=== PATIENT | female | born 2000 | race Caucasian/White ===

== ENCOUNTER 2019-08-13 01:02 | Emergency (ER) | payer BC ==
[2019-08-13 01:49] LABS: ABSOLUTE LYMPHOCYTES (AUTO) 2.7 10^3/uL (0.5-4.7); ABSOLUTE MONOCYTES (AUTO) 0.8 10^3/uL (0.1-1.4); ABSOLUTE NEUT (AUTO) 5.3 10^3/uL (1.7-8.2); BASOPHILS % (AUTO) 0.5 % (0-2); EOSINOPHILS % (AUTO) 0.4 % (0-6); HEMATOCRIT 42.2 % (36.0-47.0); HEMOGLOBIN 14.6 g/dL (12.0-15.5); LYMPHOCYTES % (AUTO) 30.3 % (13-45); MEAN CORPUSCULAR HEMOGLOBIN 30.5 pg (27.0-33.4); MEAN CORPUSCULAR HGB CONC 34.5 g/dL (32.0-36.0); MEAN CORPUSCULAR VOLUME 89 fl (80-97); PLATELET COUNT 239 10^3/uL (150-450); RED BLOOD COUNT 4.77 10^6/uL (3.72-5.28); RED CELL DISTRIBUTION WIDTH 13.2 % (11.5-14.0); SEGMENTED NEUTROPHILS % (AUTO) 59.8 % (42-78); TOTAL CELLS COUNTED % (AUTO) 100 %; WHITE BLOOD COUNT 8.9 10^3/uL (4.0-10.5)
[2019-08-13 01:58] LABS: ALBUMIN 4.8 g/dL (3.5-5.0); ALCOHOL 245 mg/dL (NONE DETECTED); ALKALINE PHOSPHATASE 70 U/L (38-126); ANION GAP 17 (5-19); ASPARTATE AMINO TRANSFERASE 32 U/L (14-36); BILIRUBIN,DIRECT 0.2 mg/dL (0.0-0.4); BILIRUBIN,TOTAL 0.6 mg/dL (0.2-1.3); BLOOD UREA NITROGEN 5 mg/dL (7-20); CALCIUM 9.6 mg/dL (8.4-10.2); CARBON DIOXIDE 20 mmol/L (22-30); CHLORIDE 112 mmol/L (98-107); GLUCOSE 109 mg/dL (75-110); POTASSIUM 3.7 mmol/L (3.6-5.0); TOTAL PROTEIN 7.9 g/dL (6.3-8.2)
[2019-08-13 01:59] LABS: ACETAMINOPHEN < 10 ug/mL (10-30); SALICYLATE < 1.0 mg/dL (2.0-20.0)
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
[2019-08-13] MEDS ORDERED: NORMAL SALINE 1000 ML 1,000 ML IV ONE (02:36)
[2019-08-13] MEDS ORDERED: ONDANSETRON HCL INJ/PF 4 MG/2 ML SDV IV ONE (03:33)
--- NOTE | 2019-08-13 03:42 | RADIOLOGY REPORT (SQ) ---
EXAM DESCRIPTION: CT HEAD WITHOUT IV CONTRAST COMPLETED DATE/TME: 08/13/2019 01:51 CLINICAL HISTORY: 19 years, Female, fall, hit head, ams COMPARISON: None. TECHNIQUE: Axial CT images of the brain were obtained without contrast. Sagittal and coronal reformats were performed. DLP 1070 Images stored on PACS. All CT scanners at this facility use dose modulation, iterative reconstruction, and/or weight based dosing when appropriate to reduce radiation dose to as low as reasonably achievable (ALARA). [facility]: Dose Right [facility]: CareDose [facility]: Dose Right [facility]: Teradose 4D [facility]: [employer] LIMITATIONS: None. FINDINGS: There is no acute cortical infarct, hemorrhage, mass, edema, hydrocephalus, or extra-axial fluid collection. The schulz-white matter differentiation is preserved. The paranasal sinuses and mastoid air cells are clear. There is no acute fracture. There is soft tissue swelling along the left parieto-occipital scalp. IMPRESSION: No acute intracranial abnormality TECHNICAL DOCUMENTATION: Quality ID # 436: Final reports with documentation of one or more dose reduction techniques (e.g., Automated exposure control, adjustment of the mA and/or kV according to patient size, use of iterative reconstruction technique) copyright 2011 [employer]- All Rights Reserved
--- NOTE | 2019-08-13 03:44 | RADIOLOGY REPORT (SQ) ---
EXAM DESCRIPTION: CT CERVICAL SPINE WITHOUT IV CONTRAST COMPLETED DATE/TME: 08/13/2019 01:51 CLINICAL HISTORY: 19 years, Female, fall, ams COMPARISON: None. TECHNIQUE: Axial CT images of the cervical spine were obtained without contrast. Sagittal and coronal reformats were performed. DLP 401. Images stored on PACS. All CT scanners at this facility use dose modulation, iterative reconstruction, and/or weight based dosing when appropriate to reduce radiation dose to as low as reasonably achievable (ALARA). [facility]: Dose Right [facility]: CareDose [facility]: Dose Right [facility]: Teradose 4D [facility]: M/A-COM LIMITATIONS: None. FINDINGS: The alignment of the cervical spine is satisfactory. There is no acute fracture or subluxation. The vertebral heights and disc spaces are maintained. The prevertebral soft tissues are normal. The craniocervical junction is intact. The odontoid process is intact. The visualized lung apices are clear. IMPRESSION: No acute fracture or subluxation involving the cervical spine. TECHNICAL DOCUMENTATION: Quality ID # 436: Final reports with documentation of one or more dose reduction techniques (e.g., Automated exposure control, adjustment of the mA and/or kV according to patient size, use of iterative reconstruction technique) copyright 2011 [employer]- All Rights Reserved
[2019-08-13 05:27] LABS: URINE BARBITURATES SCREEN NEGATIVE; URINE BENZODIAZEPINES SCREEN NEGATIVE; URINE COCAINE SCREEN NEGATIVE; URINE MARIJUANA (THC) SCREEN NEGATIVE; URINE METHADONE SCREEN NEGATIVE; URINE PHENCYCLIDINE SCREEN NEGATIVE
[2019-08-13 05:28] LABS: URINE AMPHETAMINES SCREEN NEGATIVE
[2019-08-13 08:37] VITALS: BP 117/70
== END 2019-08-13 08:35 | disposition home or self-care (01) ==
LOC: ER 01:02
DX: F10.120 Alcohol abuse with intoxication, uncomplicated (principal); S00.93XA Contusion of unspecified part of head, initial encounter; W22.8XXA Striking against or struck by other objects, initial encounter; R40.0 Somnolence; M25.519 Pain in unspecified shoulder
CPT/HCPCS: 99284; 96361; 96374; 36415; 80307 ×4; 85025; 80053; 70450; 72125; J2405; J7030

== ENCOUNTER 2019-12-30 12:49 | Emergency (ER) | payer BC ==
--- NOTE | 2019-12-30 13:08 | ER Document Report ---
ED Medical Screen (RME) - General Chief Complaint: Vaginal Bleeding Stated Complaint: BLOODY STOOL/ABDOMINAL PAIN Time Seen by Provider: 12/30/19 13:04 Primary Care Provider: KYA LEE NP [Primary Care Provider] - Follow up as needed Mode of Arrival: Ambulatory Information source: Patient Notes: 19-year-old female presented to ED for pelvic pain x3 days getting worse over the last 3 days. She states she has pain after urination and then today something came out of her vagina there was bloody and look like tissue. She is here today for pelvic pain and vaginal bleeding. There is no bloody stools. She is on the control patch. She states she is a former smoker does not drink any drugs. States her control patch did come off early and she put another patch on. I have greeted and performed a rapid initial assessment of this patient. A comprehensive ED assessment and evaluation of the patient, analysis of test results and completion of medical decision making process will be conducted by an additional ED providers. TRAVEL OUTSIDE OF THE [place] IN LAST 30 DAYS: No Doctor's Discharge - Discharge Referrals: KYA LEE NP [Primary Care Provider] - Follow up as needed
[2019-12-30 14:04] LABS: ABSOLUTE EOSINOPHILS # (AUTO) 0.1 10^3/uL (0.0-0.6); ABSOLUTE LYMPHOCYTES (AUTO) 1.7 10^3/uL (0.5-4.7); ABSOLUTE MONOCYTES (AUTO) 0.6 10^3/uL (0.1-1.4); ABSOLUTE NEUT (AUTO) 4.4 10^3/uL (1.7-8.2); BASOPHILS % (AUTO) 0.4 % (0-2); EOSINOPHILS % (AUTO) 0.9 % (0-6); HEMATOCRIT 42.2 % (36.0-47.0); HEMOGLOBIN 14.6 g/dL (12.0-15.5); LYMPHOCYTES % (AUTO) 25.5 % (13-45); MEAN CORPUSCULAR HEMOGLOBIN 31.4 pg (27.0-33.4); MEAN CORPUSCULAR HGB CONC 34.5 g/dL (32.0-36.0); MEAN CORPUSCULAR VOLUME 91 fl (80-97); MONOCYTES % (AUTO) 8.5 % (3-13); PLATELET COUNT 155 10^3/uL (150-450); RED BLOOD COUNT 4.65 10^6/uL (3.72-5.28); RED CELL DISTRIBUTION WIDTH 14.2 % (11.5-14.0); SEGMENTED NEUTROPHILS % (AUTO) 64.7 % (42-78); TOTAL CELLS COUNTED % (AUTO) 100 %; WHITE BLOOD COUNT 6.8 10^3/uL (4.0-10.5)
[2019-12-30 14:08] LABS: APPEARANCE,URINE CLEAR; BILIRUBIN,URINE NEGATIVE (NEGATIVE); COLOR,URINE STRAW; GLUCOSE, URINE NEGATIVE (NEGATIVE); KETONES,URINE NEGATIVE (NEGATIVE); LEUKOCYTE ESTERASE,URINE MODERATE (NEGATIVE); NITRITE,URINE NEGATIVE (NEGATIVE); PROTEIN,URINE 30 mg/dL (NEGATIVE); UROBILINOGEN,URINE NEGATIVE mg/dL (<2.0)
[2019-12-30 14:16] LABS: ALBUMIN 4.3 g/dL (3.5-5.0); ALKALINE PHOSPHATASE 57 U/L (38-126); ANION GAP 8 (5-19); ASPARTATE AMINO TRANSFERASE 22 U/L (14-36); BILIRUBIN,TOTAL 1.3 mg/dL (0.2-1.3); BLOOD UREA NITROGEN 10 mg/dL (7-20); CALCIUM 9.4 mg/dL (8.4-10.2); CARBON DIOXIDE 25 mmol/L (22-30); CHLORIDE 104 mmol/L (98-107); GLUCOSE 88 mg/dL (75-110); POTASSIUM 4.1 mmol/L (3.6-5.0); TOTAL PROTEIN 7.1 g/dL (6.3-8.2)
--- NOTE | 2019-12-30 15:13 | RADIOLOGY REPORT (SQ) ---
EXAM DESCRIPTION: U/S NON-OB PELVIS TV W/O DOP IMAGES COMPLETED DATE/TIME: 12/30/2019 2:50 pm REASON FOR STUDY: vaginal bleed pelvic pain COMPARISON: None. TECHNIQUE: Dynamic and static grayscale images acquired of the pelvis via transvaginal approach and recorded on PACS. Additional selected color Doppler and spectral images recorded. LIMITATIONS: None. FINDINGS: UTERUS: Contour normal. No mass. ENDOMETRIAL STRIPE: No focal or generalized thickening. No masses. CERVIX: No nabothian cysts. RIGHT OVARY AND DOPPLER: Obscured by overlying bowel gas. LEFT OVARY AND DOPPLER: Normal size. No worrisome masses. Normal arterial vascular flow without evide nce for torsion. FREE FLUID: There is free fluid throughout the pelvis. OTHER: No other significant finding. MEASUREMENTS: UTERUS: 8.5 x 4.6 x 4.4 cm. ENDOMETRIAL STRIPE: 7.0 mm. RIGHT OVARY: Not visualized. LEFT OVARY: 2.7 x 2.2 x 1.8 cm. IMPRESSION: Small amount of free fluid throughout the pelvis. Etiology of this is uncertain. No ot her significant findings. TECHNICAL DOCUMENTATION: JOB ID: [id number] 2010 [employer]- All Rights Reserved Rev-10/30 Reading location - IP/workstation name: [email or web address]
--- NOTE | 2019-12-30 17:18 | ER Document Report ---
ED GI/ - General Chief Complaint: Vaginal Bleeding Stated Complaint: BLOODY STOOL/ABDOMINAL PAIN Time Seen by Provider: 12/30/19 13:04 Primary Care Provider: [facility] [Provider Group] - Follow up in 1 week KYA LEE NP [NURSE PRACTITIONER] - Follow up as needed Mode of Arrival: Ambulatory Notes: Patient is a 19-year-old female who presents the emergency department with a chief complaint of lower abdominal pain and vaginal bleeding. Patient states that when she went to go sit down she had a large clot coming out of her vagina. Patient states that her pain started about 2 to 3 days ago. States that she was treated for bacterial vaginosis on November 29 for bacterial vaginosis. She states that she was treated with MetroGel. She only did 2 days worth of MetroGel and stopped taking it. Prior to that, she was treated for bacterial vaginosis with oral Flagyl. States at that time that medication made her nauseous and then she ended up only taking 2 days worth of it. Patient states that she should have started her menstrual cycle 3 days ago, but has not started it yet. TRAVEL OUTSIDE OF THE [place] IN LAST 30 DAYS: No - Related Data Allergies/Adverse Reactions: fentanyl Allergy (Verified 12/30/19 13:07) meperidine [From Demerol] Allergy (Verified 12/30/19 13:07) metaclazepam Allergy (Verified 12/30/19 13:07) propofol Allergy (Verified 12/30/19 13:07) Past Medical History - General Information source: Patient - Social History Smoking Status: Former Smoker Family History: Reviewed & Not Pertinent Review of Systems - Review of Systems Notes: REVIEW OF SYSTEMS: CONSTITUTIONAL : Denies recent illness. Denies recent unintentional weight loss. Denies fever, chills, or sweats. EENT: Denies eye, ear, throat, or mouth pain, discharge, or symptoms. Denies nasal or sinus congestion. CARDIOVASCULAR: Denies chest pain. RESPIRATORY: Denies shortness of breath, cough, congestion, difficulty breathing, or wheezing. GASTROINTESTINAL: Denies nausea, vomiting, and diarrhea. Denies abdominal pain. Denies constipation. GENITOURINARY: Denies difficulty urinating, burning, blood in urine, urgency or frequency. FEMALE GENITOURINARY: See HPI. MUSCULOSKELETAL: Denies neck and back pain. Denies joint pain or swelling. SKIN: Denies rash, itchiness, or lesions HEMATOLOGIC : Denies easy bruising or bleeding. LYMPHATIC: Denies swollen, painful, enlarged glands. NEUROLOGICAL: Denies no numbness or tingling denies weakness. Denies headache. Denies altered mental status. Denies alteration in speech. PSYCHIATRIC: Denies stress, anxiety, alteration in sleep patterns, or depression. All other systems reviewed and negative. Physical Exam - Vital signs Vitals: Temp Pulse BP Pulse Ox 99.0 F 93 129/86 H 100 12/30/19 12:53 12/30/19 12:53 12/30/19 12:53 12/30/19 12:53 - Notes Notes: PHYSICAL EXAMINATION: GENERAL: Appears well, healthy, well-nourished, no acute distress. HEAD: Normocephalic, atraumatic. EYES: PERRL, conjunctiva normal, all extraocular movements intact, sclera nonicteric ENT: Moist mucous membranes. NECK: Supple, no noticeable swelling, redness, rash. Normal range of motion. LUNGS: Equal breath sounds bilaterally and clear to auscultation. No wheezes rales or rhonchi. CARDIOVASCULAR: S1-S2, regular rate, regular rhythm. Radial pulses 2+, normal. ABDOMEN: Normoactive bowel sounds. Soft, nontender, no guarding, no rebound tenderness, and no masses palpated. EXTREMITIES: Normal strength and range of motion, no pitting or edema. No cyanosis. NEUROLOGICAL: Moves all extremities upon command. Strength 5/5 in all extremities. PSYCH: Normal mood, normal affect. SKIN: Warm, dry. No rash, lesions, ulcerations noted. Normal skin turgor. INSULATION BATTING MACHINE OPERATOR: Cervical motion tenderness noted. No adnexal tenderness noted. Blood noted in vaginal canal. 1 large clot, consistent with menstrual cycle. Course - Re-evaluation Re-evalutation: 12/30/19 17:18 Pelvic exam done with PATRIZIA Marques at bedside. Patient had some cervical motion tenderness noted. No adnexal tenderness noted. 12/30/19 17:57 Hematology is unremarkable. Chemistries are also unremarkable. LFTs and hCG are normal. Patient is not . Patient has a moderate amount of leukocytes in her urine a large amount of blood. The blood is from her starting her menstrual cycle. Patient has 3+ epithelial cells and 4+ bacteria noted on her wet mount. She also has 3+ WBCs. No trichomonas or yeast noted. Patient will be started on Flagyl and doxycycline to treat pelvic inflammatory disease. We will also send her home with Reg[facility] and [place]. She is in agreement with this plan. I do not suspect acute appendicitis, as patient does not have right lower quadrant abdominal pain. Patient is not septic. Patient also started her menstrual cycle. Follow-up precautions were given. Verbal discharge instructions were given to the patient. They verbalized understanding. They are stable for discharge. - Vital Signs Vital signs: Temp Pulse Resp BP Pulse Ox 97.3 F 65 16 115/65 100 12/30/19 18:47 12/30/19 18:47 12/30/19 18:47 12/30/19 18:47 12/30/19 18:47 - Laboratory Result Diagrams: 12/30/19 13:30 12/30/19 13:30 Laboratory results interpreted by me: 12/30/19 12/30/19 13:30 13:30 RDW 14.2 H Urine Protein 30 H Urine Blood LARGE H Ur Leukocyte Esterase MODERATE H Discharge - Discharge Clinical Impression: Pelvic inflammatory disease Condition: Stable Disposition: HOME, SELF-CARE Additional Instructions: Your are being treated for pelvic inflammatory disease. You are being started on 2 different antibiotics and you need to take these until you finish them. Please return if you have worsening pain, persistent vomiting, spike a fever greater than 101F, or have any other symptoms that are concerning to you. Please follow closely with you primary care physician or your RUBBER GOODS TESTER at your earliest ability. You can take the nausea medication before taking your medication. You can take either one. Prescriptions: Doxycycline Hyclate 100 mg PO BID #28 tablet. Metronidazole [Flagyl 500 mg Tablet] 500 mg PO Q6H #28 tablet Metoclopramide HCl [Reglan 10 mg Tablet] 1 - 2 tab PO ASDIR PRN #25 tablet PRN Reason: Ondansetron [Zofran Odt 4 mg Tablet] 1 - 2 tab PO Q4H PRN #30 tab.rapdis PRN Reason: For Nausea/Vomiting Referrals: KYA LEE, ROOFING MACHINE OPERATOR [NURSE PRACTITIONER] - Follow up as needed [facility] [Provider Group] - Follow up in 1 week
[2019-12-30 17:23] LABS: BACTERIA (WET MOUNT) 4+ BACTERIA SEEN; EPITHELIALS (WET MOUNT) 3+ EPITHELIALS SEEN; RBCS (WET MOUNT) 4+ RBCS SEEN; T.VAGINALIS (WET MOUNT) NO TRICHOMONAS SEEN; WBCS (WET MOUNT) 3+ WBCS SEEN; YEAST (WET MOUNT) NO YEAST SEEN
[2019-12-30] MEDS ORDERED: ONDANSETRON 4 MG TAB.RAPDIS PO ONE (17:57)
[2019-12-30] MEDS ORDERED: CEFTRIAXONE INJ 250 MG VIAL IM ONE (18:05)
[2019-12-30] MEDS ORDERED: LIDOCAINE 1% INJ-PF (10 MG/ML) 30 ML SDV INJ ONE (18:05)
[2019-12-30] MEDS ORDERED: AZITHROMYCIN 250 MG TABLET PO ONE (18:05)
[2019-12-30 18:55] VITALS: BP 115/65
[2019-12-30 19:14] LABS: CHLAM PCR NOT DETECTED (NOT DETECT)
== END 2019-12-30 18:56 | disposition home or self-care (01) ==
LOC: ER 12:49
DX: N73.9 Female pelvic inflammatory disease, unspecified (principal); N93.9 Abnormal uterine and vaginal bleeding, unspecified; R19.5 Other fecal abnormalities; R10.9 Unspecified abdominal pain; R10.30 Lower abdominal pain, unspecified; Z88.8 Allergy status to other drugs, medicaments and biological substances; Z87.891 Personal history of nicotine dependence
CPT/HCPCS: 99284; 96372; 36415; 87086; 87210; 84702; 85025; 87088; 80053; 81001; 87186; 87491; 87591; 76830; S0119; J3490; J0696

== ENCOUNTER → 2020-01-04 | Outpatient (CLI) | payer BC ==
[2020-01-04 11:58] VITALS: BP 121/56
--- NOTE | 2020-01-04 11:58 | ER [facility] ASSESSMENT REPORT ---
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 - Symptoms Subjective Fever([place] feverish): No Chills: No Muscule Aches: Yes Runny Nose: Yes Sore Throat: Yes Cough (New or worsening chronic cough): Yes Shortness of breath: No Nausea or Vomiting: Yes Headache: Yes --How many day(s)?: Has a history of migraines Abdominal Pain: Yes - Do you have any of the following Chronic lung disease: Asthma or emphysema or COPD: No Cystic Fibrosis: No Diabetes: No High Blood Pressure: No Cardiovascular Disease: No Chronic Kidney Disease: No Chronic Liver Disease: No Chronic blood disorder like Sickle Cell Disease: No Weak immune system due to disease or medication: No Neurologic condition that limits movement: Yes Neurological Condition Comment: History of migraines Developmental delay - Moderate to Severe: No Recent (within past 2 weeks) or current : No Morbid Obesity (>100 pounds over ideal weight): No Obesity Comment: 5 Feet 3 inches weight 110 pounds Other Comment: History of PID - Objective Temperature: 98.5 F Pulse Rate: 100 Respiratory Rate: 20 Blood Pressure: 121/56 O2 Sat by Pulse Oximetry: 99 Objective: Given above, testing performed: If Testing Performed: Test Specimen Type Sent to General - General Information source: Patient Notes: She reports coworkers were tested for COVID results not available at this point patient started to have symptoms this morning and 2 days ago starting with a cough this morning though had muscle aches and headache with nausea sore throat cough. And does not have a local PCP. - Related Data Allergies/Adverse Reactions: fentanyl Allergy (Verified 12/30/19 13:07) meperidine [From Demerol] Allergy (Verified 12/30/19 13:07) metaclazepam Allergy (Verified 12/30/19 13:07) propofol Allergy (Verified 12/30/19 13:07) Past Medical History - Social History Smoking Status: Current Every Day Smoker Cigarette use (# per day): Yes - vapes Smoking Education Provided: Yes - quit smoking Family History: Reviewed & Not Pertinent Physical Exam - General General appearance: Appears well, Alert In distress: None Notes: PHYSICAL EXAMINATION: GENERAL: Well-appearing and in no acute distress. HEAD: Atraumatic, normocephalic. EYES: sclera anicteric, conjunctiva are normal. ENT: nares patent. Moist mucous membranes. NECK: Normal range of motion, supple without lymphadenopathy LUNGS: CTAB and equal. No wheezes rales or rhonchi. Resp even and unlabored. Lung sounds clear. HEART: Regular rate and rhythm without murmurs ABDOMEN: Soft, nontender, normal bowel sounds, no guarding. EXTREMITIES: No cyanosis. NEUROLOGICAL: Normal speech. PSYCH: Normal mood, normal affect. SKIN: Warm, Dry, normal turgor, Diagnostic Results Laboratory Results: Formed of negative rapid strep and negative rapid flu results. Pending strep culture pending covid testing results. Patient provided instructions regarding COVID to include: As a person under investigation for Covid 19, the [place] department of Health and Human Services, division of public health advises you to adhere to the following guidance until your test results are reported to you. If your test result is positive, you will receive additional information from your provider and your local health department at that time. Remain at home until you are cleared by the health provider or public health authorities. Keep a log of visitors to your home, notify any visitors to your home of your isolation status. If you plan to move to a new address or leave the county, notify the local health department in your County. Call your doctor or seek care if you have an urgent medical need. Before seeking medical care, call ahead to get instructions from the provider before arriving at the medical office clinic or hospital. Notify them that you are being tested for the virus that causes Covid 19 so that arrangements can be made, as necessary, to prevent transmission to others in the healthcare setting. Next, notify the local health department in your county. If a medical emergency arises and you need to call 911, inform the first responders that you are being tested for the virus that causes Covid 19. Next, notify the local health department in your county. Patient Education/Counseling Counseling/Education: Patient presents with upper respiratory symptoms worrisome for possible Covid 19. Patient does not have emergency worring symptoms such as difficulty breathing, shortness of breath, chest pain, pressure, confusion or cyanosis. Patient appears suitable for discharge. Patient to go to urgent care or ED for persistent or worsening symptoms. Patient's vital signs are stable and patient is nontoxic in appearance. Good return precautions have been discussed with patient, patient verbalized understanding and is agreeable with discharge plan of care at this time. [facility] Discharge - Discharge Clinical Impression: Encounter for screening laboratory testing for COVID-19 virus Upper respiratory infection Qualifiers: URI type: unspecified URI Qualified Code(s): J06.9 - Acute upper respiratory infection, unspecified Condition: Stable Disposition: Home; Selfcare
[2020-01-04 13:08] LABS: A TYPE INFLUENZA AG NEGATIVE (NEGATIVE); B INFLUENZA AG NEGATIVE (NEGATIVE)
== END ==
LOC: RDC 11:12
PROVIDERS: ATTEND Nurse Practitioner Family
DX: Z20.828 Contact with and (suspected) exposure to other viral communicable diseases (principal); J06.9 Acute upper respiratory infection, unspecified; R05 Cough; J02.9 Acute pharyngitis, unspecified; R09.89 Other specified symptoms and signs involving the circulatory and respiratory systems; M79.10 Myalgia, unspecified site; R11.0 Nausea; R51 Headache; R10.9 Unspecified abdominal pain
CPT/HCPCS: 87070; 87880; 87635; 87804; C9803; 99201; 99211

== ENCOUNTER → 2020-02-27 | Outpatient (CLI) | payer BC ==
--- NOTE | 2020-02-27 14:59 | ER RDC ASSESSMENT REPORT ---
Intake - In the Last 14 days Have you traveled outside [place]?: No Have you been in close contact with someone CONFIRMED: No Worked in Healthcare?: No - Symptoms Subjective Fever([place] feverish): No Chills: No Muscule Aches: Yes Runny Nose: Yes Sore Throat: Yes Cough (New or worsening chronic cough): No Shortness of breath: No Nausea or Vomiting: No Headache: Yes Abdominal Pain: No Diarrhea(3 or more loose stools in last 24 hours): No - Do you have any of the following Chronic lung disease: Asthma or emphysema or COPD: No Cystic Fibrosis: No Diabetes: No High Blood Pressure: No Cardiovascular Disease: No Chronic Kidney Disease: No Chronic Liver Disease: No Chronic blood disorder like Sickle Cell Disease: No Weak immune system due to disease or medication: No Neurologic condition that limits movement: No Developmental delay - Moderate to Severe: No Recent (within past 2 weeks) or current : No Morbid Obesity (>100 pounds over ideal weight): No - Objective Temperature: 97.8 F Pulse Rate: 96 Respiratory Rate: 18 Blood Pressure: 115/60 O2 Sat by Pulse Oximetry: 97 Objective: Given above, testing performed: If Testing Performed: Test Specimen Type Sent to General - General Information source: Patient Notes: Patient presents to the [facility] for screening for the coronavirus. Patient reports body aches, congestion sore throat and headache. Patient is currently a smoker. Patient denies any significant medical history - Related Data Allergies/Adverse Reactions: fentanyl Allergy (Verified 12/30/19 13:07) meperidine [From Demerol] Allergy (Verified 12/30/19 13:07) metaclazepam Allergy (Verified 12/30/19 13:07) propofol Allergy (Verified 12/30/19 13:07) Past Medical History - General Information source: Patient - Social History Smoking Status: Current Every Day Smoker Family History: Reviewed & Not Pertinent - Medical History Medical History: Negative Surgical Hx: Negative Physical Exam - Notes Notes: The patient was evaluated during the global Covid 19 pandemic, and that diagnosis was suspected/considered upon their initial presentation. Their evaluation, treatment and testing was consistent with current guidelines for patients who present with complaints or symptoms that may be related to Covid 19. Full physical exam could not be performed due to covid 19 isolation protocols. Constitutional: Nontoxic appearance, no acute distress Eyes: Nonicteric, extraocular movements intact, sclera clear ENT: Posterior pharynx clear without exudates Cardiovascular: Heart rate and rhythm regular, no JVD Respiratory: Sounds clear bilaterally, nonlabored breathing, no use of accessory muscles, no tachypnea Gastrointestinal: Abdomen not distended Muculoskeletal: Moves all extremities well Skin: Normal color Neuro: Awake alert oriented, normal speech Psych: Normal mood and affect Diagnostic Results Laboratory Results: Patient presents with upper respiratory symptoms worrisome for possible Covid 19. Patient does not have emergency worrying symptoms such as difficulty breathing, shortness of breath, chest pain, pressure, confusion or cyanosis. Patient appears suitable for discharge as they are not of an advanced age, do not have any chronic medical conditions such as diabetes, CAD, immune deficiency, chronic lung disease or chronic kidney disease. Patient's vital signs are stable and patient is nontoxic in appearance. Good return precautions have been discussed with patient, patient verbalized understanding and is agreeable with discharge plan of care at this time. Patient Education/Counseling Counseling/Education: Patient was provided with discharge information including: As a person under investigation for Covid 19, the [place] department of Health and Human Services, division of public health advises you to adhere to the following guidance until your test results are reported to you. If your test result is positive, you will receive additional information from your provider and your local health department at that time. Remain at home until you are cleared by the health provider or public health authorities. Keep a log of visitors to your home, notify any visitors to your home of your isolation status. If you plan to move to a new address or leave the [facility], notify the local health department in your [facility]. Call your doctor or seek care if you have an urgent medical need. Before seeking medical care, call ahead to get instructions from the provider before arriving at the medical office clinic or hospital. Notify them that you are being tested for the virus that causes Covid 19 so that arrangements can be made, as necessary, to prevent transmission to others in the healthcare setting. Next, notify the local health department in your county. If a medical emergency arises and you need to call 911, inform the first responders that you are being tested for the virus that causes Covid 19. Next, notify the local health department in your county. RDC Discharge - Discharge Clinical Impression: Encounter for screening laboratory testing for COVID-19 virus Condition: Stable Disposition: Home; Selfcare
[2020-02-27 15:50] LABS: A TYPE INFLUENZA AG NEGATIVE (NEGATIVE); B INFLUENZA AG NEGATIVE (NEGATIVE)
[2020-02-27 18:04] VITALS: BP 115/60
== END ==
LOC: RDC 14:10
PROVIDERS: ATTEND Nurse Practitioner Family
DX: Z20.828 Contact with and (suspected) exposure to other viral communicable diseases (principal); J02.9 Acute pharyngitis, unspecified; M79.10 Myalgia, unspecified site; R09.89 Other specified symptoms and signs involving the circulatory and respiratory systems; R51 Headache; F17.200 Nicotine dependence, unspecified, uncomplicated; Z88.4 Allergy status to anesthetic agent; Z88.6 Allergy status to analgesic agent
CPT/HCPCS: 87070; 87880; 87804; U0003; C9803; 87635; 99201; 99211

== ENCOUNTER → 2020-05-21 | Outpatient (CLI) | payer BC ==
[2020-05-21 11:22] VITALS: BP 130/67
--- NOTE | 2020-05-21 11:22 | ER R[facility] ASSESSMENT REPORT ---
Intake - In the Last 14 days Have you traveled outside [place]?: No Have you been in close contact with someone CONFIRMED: Yes Worked in Healthcare?: No - Symptoms Subjective Fever([place] feverish): No Chills: Yes Muscule Aches: No Runny Nose: Yes Sore Throat: No Cough (New or worsening chronic cough): Yes Shortness of breath: No Nausea or Vomiting: Yes Headache: Yes Abdominal Pain: No Diarrhea(3 or more loose stools in last 24 hours): No - Do you have any of the following Chronic lung disease: Asthma or emphysema or COPD: No Cystic Fibrosis: No Diabetes: No High Blood Pressure: No Cardiovascular Disease: No Chronic Kidney Disease: No Chronic Liver Disease: No Chronic blood disorder like Sickle Cell Disease: No Weak immune system due to disease or medication: No Neurologic condition that limits movement: No Developmental delay - Moderate to Severe: No Recent (within past 2 weeks) or current : No Morbid Obesity (>100 pounds over ideal weight): No - Objective Temperature: 99.0 F Pulse Rate: 81 Respiratory Rate: 14 Blood Pressure: 130/67 O2 Sat by Pulse Oximetry: 100 Objective: Given above, testing performed: flu covid General - General Stated Complaint: cough, runny nose Time Seen by Provider: 05/21/20 10:45 Mode of Arrival: Ambulatory Information source: Patient - HPI Notes: 20-year-old female presents to [facility] clinic for COVID-19 testing. Patient reports she has had contact with Covid positive coworkers and friends within the past week. Onset of symptoms 05/17/2020. She is reporting very mild chills, runny nose, intermittent cough, nausea, and headache. Denies any fever, muscle aches, sore throat, shortness of breath, abdominal pain or diarrhea, or changes in taste or smell. - Related Data Allergies/Adverse Reactions: fentanyl Allergy (Verified 12/30/19 13:07) meperidine [From Demerol] Allergy (Verified 12/30/19 13:07) metaclazepam Allergy (Verified 12/30/19 13:07) propofol Allergy (Verified 12/30/19 13:07) Past Medical History - General Information source: Patient - Social History Smoking Status: Current Some Day Smoker Family History: Reviewed & Not Pertinent - Past Medical History Cardiac Medical History: Reports: None Pulmonary Medical History: Reports: None EENT Medical History: Reports: None Neurological Medical History: Reports: None Endocrine Medical History: Reports: None Renal/ Medical History: Reports: None Malignancy Medical History: Reports: None GI Medical History: Reports: None Musculoskeletal Medical History: Reports None Skin Medical History: Reports None Psychiatric Medical History: Reports: None Traumatic Medical History: Reports: None Infectious Medical History: Reports: None Past Surgical History: Reports: None Physical Exam - General General appearance: Appears well, Alert In distress: None Notes: PHYSICAL EXAMINATION: GENERAL: Well-appearing and in no acute distress. HEAD: Atraumatic, normocephalic. EYES: sclera anicteric, conjunctiva are normal. ENT: nares patent. Moist mucous membranes. NECK: Normal range of motion, supple without lymphadenopathy. LUNGS: No increased work of breathing. Lung sounds CTAB and equal. No wheezes rales or rhonchi. HEART: Regular rate and rhythm without murmurs. ABDOMEN: Soft, nontender, normal bowel sounds, no guarding. EXTREMITIES: Normal range of motion, no pitting edema. No cyanosis. NEUROLOGICAL: A&O x 3. Normal speech. PSYCH: Normal mood, normal affect. SKIN: Warm, Dry, normal turgor, no rashes or lesions noted Patient Education/Counseling Counseling/Education: Patient presents with symptoms associated with possible Covid 19 infection. Patient does not have emergency worrying symptoms such as difficulty breathing, shortness of breath, chest pain, pressure, confusion or cyanosis. Patient appears suitable for discharge as vital signs are stable and patient is nontoxic in appearance. Good return precautions have been discussed with patient, patient verbalized understanding and is agreeable with discharge plan of care at this time. Guidance for worsening S/SX: As a person under investigation for Covid 19, the [place] department of Health and Human Services, division of public health advises you to adhere to the following guidance until your test results are reported to you. If your test result is positive, you will receive additional information from your provider and your local health department at that time. Remain at home until you are cleared by the health provider or public health authorities. Keep a log of visitors to your home, notify any visitors to your home of your isolation status. If you plan to move to a new address or leave the county, notify the local health department in your County. Call your doctor or seek care if you have an urgent medical need. Before seeking medical care, call ahead to get instructions from the provider before arriving at the medical office clinic or hospital. Notify them that you are being tested for the virus that causes Covid 19 so that arrangements can be made, as necessary, to prevent transmission to others in the healthcare setting. Next, notify the local health department in your county. If a medical emergency arises and you need to call 911, inform the first responders that you are being tested for the virus that causes Covid 19. Next, notify the local health department in your county. RDC Discharge - Discharge Clinical Impression: Encounter for screening laboratory testing for COVID-19 virus Upper respiratory infection Qualifiers: URI type: unspecified URI Qualified Code(s): J06.9 - Acute upper respiratory infection, unspecified Condition: Good Disposition: Home; Selfcare
[2020-05-21 12:00] LABS: A TYPE INFLUENZA AG NEGATIVE (NEGATIVE); B INFLUENZA AG NEGATIVE (NEGATIVE)
== END ==
LOC: RDC 10:32
PROVIDERS: ATTEND Registered Nurse
DX: Z20.828 Contact with and (suspected) exposure to other viral communicable diseases (principal)
CPT/HCPCS: 87804; U0003; C9803; 87635; 99211